=== PATIENT | female | born 1985 | race Asian ===

== ENCOUNTER 2019-08-23 17:53 | Emergency (ER) | payer SELFPAY ==
--- NOTE | 2019-08-23 18:06 | Event Note ---
ED Screening Note Date of service: 08/23/19 Time: 17:59 ED Screening Note: This is a 34 y.o. F. that presents to the ER with low back pain that started 1 hour ago. No PMH + nauseas and vomiting Reports pain as pulling intensity. Denies injury, radiating pain, urinary changes, or chills This initial assessment/diagnostic orders/clinical plan/treatment(s) is/are subject to change based on patients health status, clinical progression and re- assessment by fellow clinical providers in the ED. Further treatment and workup at subsequent clinical providers discretion. Patient/guardian urged not to elope from the ED as their condition may be serious if not clinically assessed and managed. Initial orders include: Labs
[2019-08-23 18:15] LABS: Basophils # (Auto) 0.1 K/mm3 (0.0-0.1); Basophils % (Auto) 0.8 % (0.0-1.8); Eosinophils % (Auto) 0.2 % (0.0-4.3); Hematocrit 38.4 % (30.3-42.9); Hemoglobin 12.8 gm/dl (10.1-14.3); Lymphocytes # (Auto) 1.8 K/mm3 (1.2-5.4); Lymphocytes % (Auto) 17.9 % (13.4-35.0); Mean Corpuscular HGB Conc 33 % (30-34); Mean Corpuscular Volume 87 fl (79-97); Monocytes # (Auto) 0.7 K/mm3 (0.0-0.8); Monocytes % (Auto) 6.8 % (0.0-7.3); Platelet Count 368 K/mm3 (140-440); Red Blood Count 4.44 M/mm3 (3.65-5.03); Red Cell Distribution Width 16.3 % (13.2-15.2)
[2019-08-23 18:39] LABS: Alanine Aminotransferase 6 units/L (7-56); Albumin 4.2 g/dL (3.9-5); BUN/Creatinine Ratio 20; Blood Urea Nitrogen 14 mg/dL (7-17); Calcium 9.3 mg/dL (8.4-10.2); Hemolysis Index 27
[2019-08-23 18:48] LABS: Bilirubin,Urine NEG (Negative); Blood,Urine SM (Negative); Color,Urine Yellow (Yellow); HCG Qualitative,Urine Negative (Negative); Mucus,Urine 1+ /HPF; Protein,Urine <15 mg/dL mg/dL (Negative); Urobilinogen,Urine < 2.0 mg/dL (<2.0)
[2019-08-23 19:40] VITALS: BP 125/84
[2019-08-23] MEDS ORDERED: ONDANSETRON 4 MG ODT TAB ONE (19:45)
[2019-08-23] MEDS ORDERED: IBUPROFEN 600 MG TAB PO ONE (19:45)
[2019-08-23] MEDS ORDERED: ONDANSETRON 4 MG ODT TAB PO ONE (19:47)
[2019-08-23] MEDS ORDERED: KETOROLAC 30 MG/1 ML INJ IM ONE (21:06)
[2019-08-23] MEDS ORDERED: dexAMETHasone 20 MG/5 ML VIAL IM ONE (21:06)
--- NOTE | 2019-08-23 21:34 | XRay Report ---
LUMBOSACRAL SPINE 3 VIEWS INDICATION / CLINICAL INFORMATION: Low back pain starting today. COMPARISON: None available. FINDINGS: BONES / JOINT(S): There is moderate thoracolumbar dextroscoliosis. The pedicles are intact and the SI joints are normal. No significant arthritis. There is no evidence of fracture, subluxation or destru ctive lesion. SOFT TISSUES: No significant abnormality. ADDITIONAL FINDINGS: None. Signer Name: Dionicio Holcomb MD Signed: 08/23/2019 9:29 PM Workstation Name: [id number]
--- NOTE | 2019-08-23 22:13 | Emergency Department Report ---
ED Back Pain/Injury HPI - General Chief Complaint: Abdominal Pain Stated Complaint: BACK PAIN EXTREME Time Seen by Provider: 08/23/19 17:59 Source: patient Limitations: No Limitations - History of Present Illness Initial Comments: Patient is a 34-year-old white female with a history of chronic low back pain due to chronic scoliosis who presents to the ED with complaint of acute exacerbation of her chronic low back pain for the last 3 hours. Patient states that she was laying down watching television at home when she started having persistent worsening low back pain that radiates to the right inguinal area. Patient states that the pain is worse than the regular pain that she usually experiences. Patient denies fall, traumatic injury, heavy lifting, strenuous physical activity, dizziness, numbness and tingling or weakness of lower extremities bilaterally, change in vision, syncope, seizures, urinary or bowel incontinence, saddle paresthesia, dysuria, urinary frequency and urgency, vaginal bleeding or vaginal discharge. MD Complaint: back pain, other (muscle spasm of lower back) -: Sudden, year(s) (chronic low back pain exacerbation) Similar Symptoms Previously: Yes (chronic low back pain) Place: home Radiation: groin (right) Severity: severe Severity scale (0 -10): 8 Quality: sharp, aching Consistency: constant Improves With: none Worsens With: movement, walking Context: other (spontaneous at rest) Associated Symptoms: denies other symptoms. denies: weakness, chest pain, numbness, difficulty walking, cough, difficulty urinating, diaphoresis, incontinence, fever/chills, abdominal pain, loss of appetite, malaise, nausea/vomiting, rash, seizure, shortness of breath, other - Related Data Previous Rx's Medication Instructions Recorded Last Taken Type Naproxen 500 mg PO Q12H PRN #24 tablet 08/23/19 Unknown Rx predniSONE [Deltasone] 40 mg PO QDAY #10 tab 08/23/19 Unknown Rx tiZANidine [Zanaflex 4mg TAB] 4 mg PO Q8H PRN #21 tablet 08/23/19 Unknown Rx traMADoL [Ultram] 50 mg PO Q6HR PRN #10 tablet 08/23/19 Unknown Rx Allergies Allergy/AdvReac Type Severity Reaction Status Date / Time No Known Allergies Allergy Unverified 08/23/19 17:57 ED Review of Systems ROS: Stated complaint: BACK PAIN EXTREME Other details as noted in HPI Constitutional: denies: chills, fever Eyes: denies: eye pain, eye discharge, vision change ENT: denies: ear pain, throat pain Respiratory: denies: cough, shortness of breath, wheezing Cardiovascular: denies: chest pain, palpitations Endocrine: no symptoms reported Gastrointestinal: denies: abdominal pain, nausea, diarrhea Genitourinary: denies: urgency, dysuria, discharge Musculoskeletal: back pain (lower back), arthralgia. denies: joint swelling Skin: denies: rash, lesions Neurological: denies: headache, weakness, paresthesias Psychiatric: denies: anxiety, depression Hematological/Lymphatic: denies: easy bleeding, easy bruising ED Past Medical Hx - Past Medical History Previous Medical History?: No - Surgical History Past Surgical History?: Yes Additional Surgical History: cyst removed from between large and small intestine - Social History Smoking Status: Never Smoker Substance Use Type: None - Medications Home Medications: Home Medications Medication Instructions Recorded Confirmed Last Taken Type Naproxen 500 mg PO Q12H PRN #24 tablet 08/23/19 Unknown Rx predniSONE [Deltasone] 40 mg PO QDAY #10 tab 08/23/19 Unknown Rx tiZANidine [Zanaflex 4mg TAB] 4 mg PO Q8H PRN #21 tablet 08/23/19 Unknown Rx traMADoL [Ultram] 50 mg PO Q6HR PRN #10 tablet 08/23/19 Unknown Rx ED Physical Exam - General Limitations: No Limitations General appearance: alert, in no apparent distress - Head Head exam: Present: atraumatic, normocephalic, normal inspection - Eye Eye exam: Present: normal appearance, PERRL, EOMI Pupils: Present: normal accommodation - ENT ENT exam: Present: normal exam, normal orophraynx, mucous membranes moist, TM's normal bilaterally, normal external ear exam - Neck Neck exam: Present: normal inspection, full ROM. Absent: tenderness - Respiratory Respiratory exam: Present: normal lung sounds bilaterally. Absent: respiratory distress, wheezes, rales, stridor, chest wall tenderness, accessory muscle use, decreased breath sounds - Cardiovascular Cardiovascular Exam: Present: regular rate, normal rhythm, normal heart sounds. Absent: systolic murmur, diastolic murmur, rubs, gallop - GI/Abdominal GI/Abdominal exam: Present: soft, normal bowel sounds. Absent: tenderness, guarding, hyperactive bowel sounds, hypoactive bowel sounds, organomegaly - Extremities Exam Extremities exam: Present: normal inspection, full ROM, normal capillary refill - Back Exam Back exam: Present: normal inspection, full ROM, tenderness (Palpable lumbosacral paraspinal musculoskeletal tenderness), muscle spasm, paraspinal tenderness. Absent: CVA tenderness (R), CVA tenderness (L), vertebral tenderness - Neurological Exam Neurological exam: Present: alert, oriented X3, CN II-XII intact, normal gait, reflexes normal - Psychiatric Psychiatric exam: Present: normal affect, normal mood - Skin Skin exam: Present: warm, dry, intact, normal color. Absent: rash ED Course Vital Signs 08/23/19 19:35 Temperature 98.3 F Pulse Rate 97 H Respiratory 18 Rate Blood Pressure 125/84 O2 Sat by Pulse 100 Oximetry ED Medical Decision Making - Lab Data Result diagrams: 08/23/19 18:05 08/23/19 18:05 - Radiology Data Radiology results: report reviewed, image reviewed The L-spine x-ray shows no acute fractures or subluxations but a chronic moderate dextroscoliosis in the thoracolumbar region. - Medical Decision Making This is a 34-year-old female with a history of chronic low back pain due to chronic scoliosis and who presented to the ED with acute exacerbation of her chronic low back pain that radiates to the right inguinal area for the last 3 hours. In the ED, patient is alert and oriented x3 and is not in any distress with normal vital signs. Lab test results were reviewed and are all nonactionable including urinalysis. The L-spine x-ray shows no acute fractures or subluxations but chronic stable moderate dextroscoliosis in the thoracolumbar region. Patient was treated for pain in the ED and on reevaluation, patient's pain is moderately controlled. Patient was discharged home on pain medications and muscle relaxants and was advised to follow-up with her primary care physician in 5 to 7 days for reevaluation or return to the ED immediately if sy mptoms get worse. - Differential Diagnosis chroni back pain; muscle spasm; muscle strain; scoliosis Critical care attestation.: If time is entered above; I have spent that time in minutes in the direct care of this critically ill patient, excluding procedure time. ED Disposition Clinical Impression: Acute exacerbation of chronic low back pain, Spasm of muscle of lower back, Strain of muscle, fascia and tendon of lower back, initial encounter Disposition: - TO HOME OR SELFCARE Is pt being admited?: No Does the pt Need Aspirin: No Condition: Stable Instructions: Muscle Spasm (ED), Chronic Back Pain (ED), Muscle Strain (ED) Additional Instructions: Your symptoms are likely due to muscle spasm and muscle strain of your lower back. All test results are unremarkable. Therefore take pain medications and muscle relaxants with food, drink plenty of fluids and follow-up with your primary care physician in 5 to 7 days for reevaluation. Return to the ED immediately if symptoms get worse. Prescriptions: predniSONE [Deltasone] 40 mg PO QDAY #10 tab Naproxen 500 mg PO Q12H PRN #24 tablet PRN Reason: Pain , Severe (7-10) traMADoL [Ultram] 50 mg PO Q6HR PRN #10 tablet PRN Reason: Pain tiZANidine [Zanaflex 4mg TAB] 4 mg PO Q8H PRN #21 tablet PRN Reason: Muscle Spasm Referrals: [facility] [Outside] - 7-10 days Time of Disposition: 22:20 Print Language: AMHARIC
== END 2019-08-23 23:34 | disposition left against medical advice (07) ==
LOC: ED 17:53
DX: S39.012A Strain of muscle, fascia and tendon of lower back, initial encounter (principal); M62.830 Muscle spasm of back; X58.XXXA Exposure to other specified factors, initial encounter; Y93.89 Activity, other specified; Y92.89 Other specified places as the place of occurrence of the external cause; Y99.8 Other external cause status
CPT/HCPCS: 36415; 72100; 80053; 81001; 81025; 85025; 96372; 99283; J1100; J1885; Q0162